=== PATIENT | male | born 1965 | race Caucasian/White ===

== ENCOUNTER 2017-10-29 05:43 | Day surgery (SDC) | payer BC ==
[2017-10-29] MEDS ORDERED: Versed 2 MG/2 ML Injection IV ONE (05:44)
[2017-10-29] MEDS ORDERED: DIPRIVAN 200 MG/20 ML IV ONE (05:44)
[2017-10-29] MEDS ORDERED: Lactated Ringers 1,000 ML IV SCH (06:30)
[2017-10-29] MEDS ORDERED: SUBLIMAZE 100 MCG/2 ML ONE (07:18)
[2017-10-29] MEDS ORDERED: SUBLIMAZE 100 MCG/2 ML IV ONE (07:19)
--- NOTE | 2017-10-29 09:00 | OP ---
SURGERY DATE: 10/29/17 SURGERY TIME: 800 PREOPERATIVE DIAGNOSIS: 1. SCREENING COLON. POSTOPERATIVE DIAGNOSIS: 1. NORMAL COLON. PROCEDURE: 1. Colonoscopy. SURGEON: Dr. Nehemiah Stone. ANESTHESIA: MAC by Tin Gabriel CRNA. SPECIMENS: None. ESTIMATED BLOOD LOSS: None. DESCRIPTION OF PROCEDURE: After informed written consent was obtained, the patient was taken to the endoscopy suite. He underwent monitored anesthesia and a digital rectal exam showed normal sphincter tone and no internal lesions. The scope was inserted into the rectum and sequentially the entire colonic mucosa was traversed. The level of the cecum was reached and verified with direct visualization of the ileocecal valve. Upon withdrawal, careful mucosal inspection revealed no gross mucosal abnormalities. Prep was noted to be fair. Prior to withdrawal, retroflexion was performed and showed no internal lesions. The scope was removed and the patient was transferred to the recovery room in excellent condition.
[2017-10-29] MEDS ORDERED: TORAdol 30 mg Injection IV ONE (09:16)
[2017-10-29 09:53] VITALS: O2SAT 97
[2017-10-29 10:08] VITALS: BP 112/71; PULSE 70
== END 2017-10-29 10:10 | disposition home or self-care (01) ==
LOC: SDC 05:43
PROVIDERS: ATTEND Family Medicine
PROC: 0DJD8ZZ Inspection of Lower Intestinal Tract, Via Natural or Artificial Opening Endoscopic (ICD-10-PCS; principal; 2017-10-29)
DX: Z12.11 Encounter for screening for malignant neoplasm of colon (principal)
CPT/HCPCS: 00810; J1885; J2250; J2704; J3010

== ENCOUNTER 2019-01-17 16:24 | Emergency (ER) | payer BC | END 2019-01-17 18:56 | disposition home or self-care (01) | LOC: ED 16:24 ==